=== PATIENT | male | born 1950 ===

== ENCOUNTER → 2025-09-22 | Outpatient (CLI) | payer OTHER ==
--- NOTE | 2025-09-22 19:45 | HMCSR ---
APPROVED REPORT EXAM: Two-dimensional and M-mode echocardiogram with Doppler and color Doppler. INDICATION ICD: I25.10 Atherosclerotic heart disease of [place] coronary artery without angina pectoris 2D Dimensions RVDd 3.7 cm LVEF(%) 70.2 (>50%) LVED Vol(simp.) 110.9 mL IVSd 0.9 (0.7-1.1cm) FS(%) 40 % LVES Vol(simp.) 40.7 mL LVDd 4.7 (3.8-5.6cm) LA (2D) 3.7 (1.6-4.0cm) LVEF(%, simp.) 63 % PWd 0.9 (0.7-1.1cm) Ao Root(2D) 3.4 (2.0-3.7cm) LA ESV INDEX (BP) 26.33 mL/m2 LVDs 2.8 (2.5-4.0cm) LVOT diam 1.9 (1.8-2.4cm) IVC diam 1.7 cm M-Mode Dimensions EPSS 0.9 cm LA (MM) 4.1 (1.6-4.0cm) Ao Root(MM) 2.8 (2.0-3.7cm) Aortic Valve AoV Vmax 1.9 m/s Ao Peak GR 14.4 mmHg LVOT Vmax 1.1 m/s AoV VTI 0.5 m Ao Mean GR 8.1 mmHg LVOT VTI 0.27 m NEDA (VMAX) 1.65 cm2 Al P1/2T 439 ms NEDA (VTI) 1.7 cm2 Mitral Valve MV E Vmax 74.6 cm/s DECEL Time 306 ms MV A Vmax 105.4 cm/s P 1/2 T 94 ms E/A ratio 0.7 MVA (PHT) 2.3 cm2 TDI E/E' Medial 10.5 E/E' Lateral 10.1 Medial E' Peak V 7.08 cm/s Lateral E' Peak V 7.41 cm/s Pulmonary Valve PV Vmax 1.2 m/s PV VTI 0.26 m PV Mean GR 2.8 mmHg PV Peak GR 5.5 mmHg Left Ventricle The left ventricle is normal size. There is normal LV segmental wall motion. There is normal left ventricular wall thickness. LVEF is 64%. Indeterminate diastolic dysfunction. Right Ventricle The right ventricle is normal size. The right ventricular systolic function is normal. Atria The left atrium size is normal. The right atrium size is normal. Aortic Valve Aortic valve is trileaflet, mildly thickened but opens well. Nodular calcification of the non coronary cusp leaflet. Mild aortic regurgitation is present by color Doppler. There is no aortic valvular stenosis. Mitral Valve The mitral valve is mildly thickened but opens well. There is trace of mitral valve regurgitation noted. There is no mitral valve stenosis. Tricuspid Valve The tricuspid valve is normal in structure. There is no tricuspid valve regurgitation noted. Pulmonic Valve The pulmonary valve is normal in structure. There is no pulmonic valvular regurgitation. Great Vessels The aortic root is normal in size. The IVC is normal in size. Pericardium There is no pericardial effusion. Other Information Quality : Adequate Conclusion LVEF is 64%. Aortic valve is trileaflet, mildly thickened but opens well. Nodular calcification of the non coronary cusp leaflet. Mild aortic regurgitation is present by color Doppler.
== END | disposition home or self-care (01) ==
LOC: RAH 13:20
PROVIDERS: ATTEND Chiropractor
DX: I08.0 Rheumatic disorders of both mitral and aortic valves (principal); I25.10 Atherosclerotic heart disease of native coronary artery without angina pectoris
CPT/HCPCS: 93306